=== PATIENT | female | born 1965 ===

== ENCOUNTER 2018-08-31 09:43 | Outpatient (CLI) | payer OTHER | END 2018-08-31 09:44 | disposition home or self-care (01) | LOC: C.LAB 09:43 ==

== ENCOUNTER 2018-11-21 11:46 | Outpatient (CLI) | payer OTHER | END 2018-11-21 11:47 | disposition home or self-care (01) | LOC: C.MAMMO 11:46 | DX: Z12.31 Encounter for screening mammogram for malignant neoplasm of breast (principal) ==